=== PATIENT | female | born 1960 | race Two or more races ===

== ENCOUNTER 2018-05-01 12:43 | Outpatient (CLI) | payer OTHER | END 2018-05-01 17:00 | disposition home or self-care (01) | LOC: MRI 12:43 | DX: M77.01 Medial epicondylitis, right elbow (principal) | CPT/HCPCS: 73221 ==

== ENCOUNTER → 2018-08-17 | Outpatient (CLI) | payer OTHER | END | disposition home or self-care (01) | LOC: MRI 12:02 | DX: M23.011 Cystic meniscus, anterior horn of medial meniscus, right knee (principal); M25.561 Pain in right knee; M25.562 Pain in left knee | CPT/HCPCS: 73721 ==

== ENCOUNTER 2019-09-07 10:08 | Outpatient (CLI) | payer OTHER | END 2019-09-07 11:50 | disposition home or self-care (01) | LOC: RAD 10:08 | DX: M54.2 Cervicalgia (principal) ==

== ENCOUNTER 2021-07-16 08:00 | Outpatient (CLI) | payer OTHER | END 2021-07-16 08:30 | disposition home or self-care (01) | LOC: PPH VACUNA 08:00 | PROVIDERS: ATTEND Emergency Medicine Pediatric Emergency Medicine | DX: Z23 Encounter for immunization (principal) ==

== ENCOUNTER 2022-03-23 13:08 | Outpatient (CLI) | payer OTHER | END 2022-03-23 13:18 | disposition home or self-care (01) | LOC: PPH VACUNA 13:08 | PROVIDERS: ATTEND Emergency Medicine Pediatric Emergency Medicine | DX: Z23 Encounter for immunization (principal) ==

== ENCOUNTER 2022-10-01 08:55 | Outpatient (CLI) | payer OTHER | END 2022-10-01 09:10 | disposition home or self-care (01) | LOC: SONOGRAMA 08:55 | PROVIDERS: ATTEND Obstetrics & Gynecology | DX: E04.9 Nontoxic goiter, unspecified (principal) ==

== ENCOUNTER 2022-12-08 12:29 | Outpatient (CLI) | payer OTHER | END 2022-12-08 13:00 | disposition home or self-care (01) | LOC: SONOGRAMA 12:29 | PROVIDERS: ATTEND Internal Medicine Gastroenterology | DX: R10.9 Unspecified abdominal pain (principal); N63.0 Unspecified lump in unspecified breast ==

== ENCOUNTER 2023-09-13 08:23 | Outpatient (CLI) | payer OTHER | END 2023-09-13 15:20 | disposition home or self-care (01) | LOC: SONOGRAMA 08:23 | PROVIDERS: ATTEND Radiology Diagnostic Radiology | DX: R10.2 Pelvic and perineal pain (principal); N60.11 Diffuse cystic mastopathy of right breast ==

== ENCOUNTER 2023-11-11 07:18 | Outpatient (CLI) | payer OTHER | END 2023-11-11 12:28 | disposition home or self-care (01) | LOC: MRI 07:18 | PROVIDERS: ATTEND Internal Medicine Gastroenterology | DX: R10.2 Pelvic and perineal pain (principal) | CPT/HCPCS: 72197 ==

== ENCOUNTER 2023-11-25 09:43 | Outpatient (CLI) | payer OTHER | END 2023-11-25 10:03 | disposition home or self-care (01) | LOC: TOM 09:43 | PROVIDERS: ATTEND Internal Medicine Gastroenterology | DX: J45.31 Mild persistent asthma with (acute) exacerbation (principal); R06.02 Shortness of breath ==

== ENCOUNTER → 2024-07-03 | Outpatient (CLI) | payer OTHER | END | disposition home or self-care (01) | LOC: SONOGRAMA 07:04 | PROVIDERS: ATTEND Internal Medicine Gastroenterology | DX: R10.9 Unspecified abdominal pain (principal) ==

== ENCOUNTER → 2025-07-31 | Outpatient (CLI) | payer OTHER | END | disposition home or self-care (01) | LOC: RAD 12:01 | PROVIDERS: ATTEND Internal Medicine Rheumatology | DX: M17.11 Unilateral primary osteoarthritis, right knee (principal); M17.12 Unilateral primary osteoarthritis, left knee ==

== ENCOUNTER 2025-08-22 06:40 | Outpatient (CLI) | payer OTHER | END 2025-08-23 10:38 | disposition home or self-care (01) | LOC: MRI 06:40 | PROVIDERS: ATTEND Internal Medicine Rheumatology | DX: S83.206A Unspecified tear of unspecified meniscus, current injury, right knee, initial encounter (principal) | CPT/HCPCS: 73721 ==